=== PATIENT | female | born 1990 | race Hispanic/Latino ===

== ENCOUNTER 2018-09-22 12:29 | Inpatient (IN) | payer OTHER, SELFPAY ==
[2018-09-22 13:01] VITALS: BMI 24.5
[2018-09-22] MEDS ORDERED: Promethazine HCl 25 MG/ML VIAL IM PRN (13:14)
[2018-09-22] MEDS ORDERED: Ondansetron PF 4 MG/2 ML Vial IVP PRN ×2 (13:14→15:43)
[2018-09-22] MEDS ORDERED: NS / Oxytocin 40 units/1000ml 1,000 ML IV PRN (13:14)
[2018-09-22] MEDS ORDERED: Lidocaine 1% (PF) 30 ML VIAL SC PRN (13:14)
[2018-09-22] MEDS ORDERED: Butorphanol Tartrate 1 MG/ML VIAL SLOW IVP PRN (13:14)
--- NOTE | 2018-09-22 13:32 | PDOC.FPROB ---
FMR OB H&P: HPI - History of Present Illness Chief Complaint: Contractions Indentification: 28yo female @39.5wks by LMP c/w 9.4wk US History of Present Illness: 28yo female @39.5wks by LMP c/w 9.4wk US presents for contractions since 0400. Endorses movement. Reports small amount of vaginal bleeding this AM. Denies LOF. Denies headache, vision changes, edema. Primary Care Physician: Dr Gay FMR OB H&P: Current - Care : 3 Para: 2002 Gestational age: 39.5wks Due date: 09/24/18 Dating Criteria: LMP c/w 9.5wk US Course/Complications: Cervical polyp - OB Labs Blood type: O RH: positive Antibody Screen: negative HIV: negative RPR: negative HepBsAg: negative Rubella: immune Gonorrhea: negative Chlamydia: negative Pap Smear: 02/04/17 nml 1 hour gtt: 82 GBS: negative - Anatomy Survey Anatomy survey: Placenta Anterior fundal. Nuchal fold and RVOT not visualized otherwise normal. Unable to visualize base of cervical polyp. Stalk appeared small of part visualized. 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 - Social History Social History: Denies alcohol, tobacco and drug use - Family History Family History: Noncontributory FMR OB H&P: Medications - Current Home Medications: Medication Instructions Recorded Confirmed Type Vitamin 1 tablet PO DAILY 05/13/15 05/13/15 History traMADol HCl [Ultram] 50 mg PO QID #0 tab 05/15/15 Rx Allergies/Adverse Reactions: Allergies Allergy/AdvReac Type Severity Reaction Status Date / Time No Known Allergies Allergy Verified 09/22/18 12:56 FMR OB H&P: ROS - Review of Systems General: denies: fever/chills Eyes: denies: vision changes, double vision, scotomas, floaters ENT: denies: nasal congestion, rhinorrhea Cardiovascular: denies: chest pain, palpitation Respiratory: denies: cough, shortness of breath Gastrointestinal: denies: nausea, vomiting Genitourinary (Female): reports: vaginal bleeding (mild, this AM), contractions. denies: vaginal discharge Neurologic: denies: numbness, weakness Integumentary: denies: itching, rash FMR OB H&P: Vital Signs - Heart Tones Baseline: 130 Variability: moderate Acceleration: present Deceleration: absent Category: category 1 [place] contractions every: 2-3min FMR OB H&P: Physical Exam - Physical Exam General: NAD, awake, alert and oriented HEENT: normocephalic and atraumatic, MMM, conjunctiva clear, grossly normal hearing, oropharynx clear Neck: supple, trachea midline Heart: RRR, no murmurs/rubs/gallops General: CTAB, no respiratory distress Abdomen: soft, gravid Musculoskeletal: pulses present, FROM in all four extremities, no misalignment/ asymmetry, no atrophy Neurological: no focal deficit Skin: good tugor Lymphatic: no unusual bruising or bleeding Psychiatric: intact recent and remote memory, good judgement and insight, normal mood and affect - Pelvic Exam SVE: Membranes: Intact Presentation: Vertex on 09/12 FMR OB H&P: A/P - Problem List (1) Term Current Visit: Yes Status: Acute Code(s): Z34.80 - ENCOUNTER FOR SUPRVSN OF NORMAL , UNSP TRIMESTER (2) Cervical polyp Current Visit: Yes Status: Acute Code(s): N84.1 - POLYP OF CERVIX UTERI Disposition: 28yo female @39.5wks by LMP c/w 9.4wk US sIUP - Initial cervical check - FHTs 130 Cat 1 - Admit to L&D - Pt undecided on epidural Cervical Polyp - Exam at time of Anatomy US, recommended removal PP - No vaginal bleeding FH of HTN - BP 119/73 Discussion: Date/Time: 09/22/18 1318 This H&P was discussed with [] and [] who agree with the above documentation and plan.
[2018-09-22 14:32] LABS: Hemoglobin 11.7 g/dL (12.0-16.0); Mean Corpuscular HGB CONC 33.7 g/dL (32.0-36.0); Mean Corpuscular Hemoglobin 30.4 pg (27.0-31.0); Mean Corpuscular Volume 90.4 fL (78.0-98.0); Mean Platelet Volume 6.1 fL (7.4-10.4); Platelet Count 181 thou/uL (130-400); Red Blood Cell (RBC) Count 3.84 mill/uL (4.20-5.40); White Blood Cell (WBC) Count 7.5 thou/uL (4.8-10.8)
[2018-09-22 15:14] LABS: HBSAg Index 0.29 S/CO (0-0.99); Hep B Surf Ag Non-Reactive S/CO (NonReactive); Syphilis Antibody Nonreactive (Nonreactive); Syphilis Antibody Index 0.05 S/CO (<1.00 Non-Reactive)
[2018-09-22] MEDS ORDERED: Lanolin Ointment 7 GM TUBE TOP PRN (15:43)
[2018-09-22] MEDS ORDERED: Bisacodyl 10 MG SUPP PR PRN (15:43)
[2018-09-22] MEDS ORDERED: HYDROcodone/Acetaminophen 5/325 mg Tablet PO PRN (15:43)
[2018-09-22] MEDS ORDERED: Milk Of Magnesia 30 ML UDCUP PO PRN (15:43)
[2018-09-22] MEDS ORDERED: NS / Oxytocin 40 units/1000ml 1,000 ML IV SCH (15:43)
[2018-09-22] MEDS ORDERED: Adacel (T-DAP) 0.5 ML SYRINGE IM ONE (15:43)
[2018-09-22] MEDS ORDERED: Benzocaine-Menthol 82.5 ML CAN TOP PRN (15:43)
--- NOTE | 2018-09-22 15:54 | PDOC.OPDEL ---
OB Operative/Delivery Note - Additional Findings/Plan Compilations/Other Findings: Delivering Physician: Bhupendra Sue and Sarah Gay Attending: Dr Newsome Procedure: Spontaneous Vaginal Delivery Anesthesia: Stadol for pain EBL: 300 ml Pre-op Diagnosis: 1. Term intrauterine in labor 2. Cervical polyp on 2T US Post-op Diagnosis: 1. Term intrauterine , delivered 2. Cervical polyp on 2T US Indications: A 28y/o female presents in active labor Delivery Note: This is 28yo F @ 39.5wks who delivered a viable F infant at 1518 on 09/22/18. Following an uneventful antepartum course, a vigorous female was delivered over an intact perineum in the occipitoanterior position. Anterior Shoulder and then remainder of the body delivered. No nuchal cord. The head was held down and mouth and nares were bulb suctioned. Cord clamped after delayed cord clamping and cut and cord blood collected. Placenta delivered intact in the [place] with a 3 vessel cord noted. Fundal massage was performed and the fundus was firm. The cervix and vagina were inspected and found to be free of lacerations. Infant went to nursery in good condition for routine care. Apgars were 9/9 at 1 & 5 minutes, respectively. Patient tolerated delivery well and went to after routine recovery/care. Addendum - Attending - Attending Attestation Date/Time: 09/23/18 8492 I was present supervising for the entire second and third stages of labor. Please refer to the note for complete details of the delivery. It was uncomplicated. I agree with the History, Examination, Assessment and Plan documented above with any addition or exceptions noted below.
[2018-09-22] MEDS: Docusate Calcium (SURFAK) 240 MG CAP PO SCH (21:05)
[2018-09-22] MEDS: Ibuprofen 800 MG TAB PO SCH (21:05)
[2018-09-22] MEDS: Acetaminophen 500 MG TAB PO SCH (21:06)
[2018-09-23] MEDS: Ibuprofen 800 MG TAB PO SCH ×2 (05:13→13:52)
[2018-09-23] MEDS: Acetaminophen 500 MG TAB PO SCH ×2 (05:13→13:52)
[2018-09-23 07:26] LABS: Hemoglobin 10.6 g/dL (12.0-16.0); Mean Corpuscular Hemoglobin 30.5 pg (27.0-31.0); Mean Corpuscular Volume 89.6 fL (78.0-98.0); Mean Platelet Volume 6.2 fL (7.4-10.4); Platelet Count 183 thou/uL (130-400); RBC Distribution Width 13.9 % (11.5-14.5); Red Blood Cell (RBC) Count 3.47 mill/uL (4.20-5.40); White Blood Cell (WBC) Count 9.4 thou/uL (4.8-10.8)
--- NOTE | 2018-09-23 07:50 | PDOC.OBPPN ---
FMR OB PN: Subj - Interval History Hospital Day: 2 Day: PPD1 28yo female @39.5wks by LMP c/w 9.4wk US ps/p yesterday afternoon, doing well. Pt would like to go home this afternoon. She's ambulating, tolerating po, , pain controlled. She hasn't stooled or passed gas yet. FMR OB PN: Obj - Maternal Vital signs: Selected Entries 09/23/18 05:00 Temperature 98.3 F Pulse Rate 84 Blood Pressure 99/65 [Semi-Fowlers] Respiratory 16 Rate - Lochia Lochia: minimal FMR OB PN: Exam - Physical Exam General: NAD, awake, alert and oriented HEENT: normocephalic and atraumatic Heart: RRR, normal S1/S2, no murmurs/rubs/gallops, no edema General: CTAB, no respiratory distress, good air movement Abdomen: soft, non-tender Psychiatric: intact recent and remote memory - Pelvic Exam : non-tender, no edema, normal lochia FMR OB PN: Data - Labs Lab results: Laboratory Results - last 24 hr 09/22/18 09/22/18 09/22/18 14:07 14:07 14:08 WBC RBC Hgb Hct MCV MCH MCHC RDW Plt Count MPV Syphilis IgG/IgM Ab Nonreactive Hep Bs Antigen Non-Reactive Blood Type O POSITIVE Antibody Screen NEGATIVE 09/22/18 09/22/18 09/23/18 14:08 14:47 07:07 WBC 7.5 9.4 RBC 3.84 L 3.47 L Hgb 11.7 L 10.6 L Hct 34.7 L 31.0 L MCV 90.4 89.6 MCH 30.4 30.5 MCHC 33.7 34.0 RDW 14.0 13.9 Plt Count 181 183 MPV 6.1 L 6.2 L Syphilis IgG/IgM Ab Hep Bs Antigen Blood Type O POSITIVE Antibody Screen FMR OB PN: A/P - Problem List (1) Term Status: Acute Code(s): Z34.80 - ENCOUNTER FOR SUPRVSN OF NORMAL , UNSP TRIMESTER (2) Term delivered Status: Acute Code(s): O80 - ENCOUNTER FOR FULL-TERM UNCOMPLICATED DELIVERY (3) Vaginal delivery Status: Acute Code(s): O80 - ENCOUNTER FOR FULL-TERM UNCOMPLICATED DELIVERY (4) Cervical polyp Status: Acute Code(s): N84.1 - POLYP OF CERVIX UTERI Discussion: Date/Time: 09/23/18 0750 28yo female @39.5wks by LMP c/w 9.4wk US s/p , PPD #1. #1)sIUP, delivered via - -routine care -ok for discharge >24 hours -follow-up 2 wks at [facility] #2)Cervical polyp- -follow-up outpatient Addendum - Attending - Attending Attestation Date/Time: 09/24/18 1307 I personally evaluated the patient and discussed the management with Dr. Gay I agree with the History, Examination, Assessment and Plan documented above with any addition or exceptions noted below.
[2018-09-23] MEDS ORDERED: Prenatal Vitamin 1 TAB PO SCH (09:00)
[2018-09-23] MEDS: Docusate Calcium (SURFAK) 240 MG CAP PO SCH (09:20)
[2018-09-23 11:33] VITALS: BP 111/64; TEMP 98.1
== END 2018-09-23 18:30 | disposition home or self-care (01) | DRG 807 ==
LOC: L&D/OP 12:29 → L&D 15:04 → 3SW 17:33
PROVIDERS: ADMIT Obstetrics & Gynecology; ATTEND Obstetrics & Gynecology
PROC: 10E0XZZ Delivery of Products of Conception, External Approach (ICD-10-PCS; principal; 2018-09-23)
DX: O34.43 Maternal care for other abnormalities of cervix, third trimester (principal); Z37.0 Single live birth; N84.1 Polyp of cervix uteri; Z3A.39 39 weeks gestation of pregnancy
CPT/HCPCS: 36415; 85027; 86780; 86850; 86900; 86901; 87340; 90715; 99285; J2001